=== PATIENT | female | born 1990 | race Asian ===

== ENCOUNTER 2019-04-03 07:36 | Emergency (ER) | payer OTHER | END 2019-04-03 11:45 | disposition home or self-care (01) | LOC: JER 07:36 ==

== ENCOUNTER 2019-06-08 00:47 | Emergency (ER) | payer OTHER ==
[2019-06-08 01:00] VITALS: BP 113/73; PULSE 63; TEMP 97.6; BMI 24.3
--- NOTE | 2019-06-08 01:35 | PDOC ---
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 Patient stuck w/ 22g butterfly needle in L 3rd finger post blood draw of patient. Ms. Orellana is well appearing w/ no complaints at this time. Patient not requesting any testing however needs medical evaluation. Patient blood draw was from has no PMH. The patient denies chest pain, shortness of breath, headache and dizziness. Denies fever, chills, nausea, vomit, diarrhea and constipation. Denies dysuria, frequency, urgency and hematuria. Past History - Past Medical History Allergies/Adverse Reactions: Allergies Allergy/AdvReac Type Severity Reaction Status Date / Time No Known Allergies Allergy Verified 06/08/19 00:58 Home Medications: Ambulatory Orders NK [No Known Home Medication] 06/08/19 COPD: No Thyroid Disease: Yes (hypo) - Immunization History Immunization Up to Date: Yes - Suicide/Smoking/Psychosocial Hx Smoking History: Never smoked Have you smoked in the past 12 months: No Information on smoking cessation initiated: No Hx Alcohol Use: No Drug/Substance Use Hx: No Substance Use Type: None Review of Systems - Review of Systems Comments:: 06/08/19 01:31 GENERAL/CONSTITUTIONAL: No fever or chills. No weakness. HEAD, EYES, EARS, NOSE AND THROAT: No change in vision. No ear pain or discharge. No sore throat. CARDIOVASCULAR: No chest pain or shortness of breath RESPIRATORY: No cough, wheezing, or hemoptysis. GASTROINTESTINAL: No nausea, vomiting, diarrhea or constipation. GENITOURINARY: No dysuria, frequency, or change in urination. MUSCULOSKELETAL: No joint or muscle swelling or pain. No neck or back pain. SKIN: No rash NEUROLOGIC: No headache, vertigo, loss of consciousness, or change in strength/ sensation. ENDOCRINE: No increased thirst. No abnormal weight change HEMATOLOGIC/LYMPHATIC: No anemia, easy bleeding, or history of blood clots. ALLERGIC/IMMUNOLOGIC: No hives or skin allergy. *Physical Exam - Vital Signs Last Vital Signs Temp Pulse Resp BP Pulse Ox 97.6 F 63 20 113/73 99 06/08/19 00:59 06/08/19 00:59 06/08/19 00:59 06/08/19 00:59 06/08/19 00:59 - Physical Exam Comments: 06/08/19 01:32 GENERAL: Awake, alert, and fully oriented, in no acute distress HEAD: No signs of trauma, normocephalic, atraumatic EYES: PERRLA, EOMI, sclera anicteric, conjunctiva clear ENT: Auricles normal inspection, hearing grossly normal, nares patent, oropharynx clear without exudates. Moist mucosa NECK: Normal ROM, supple, no lymphadenopathy, JVD, or masses LUNGS: No distress, speaks full sentences, clear to auscultation bilaterally HEART: Regular rate and rhythm, normal S1 and S2, no murmurs, rubs or gallops, peripheral pulses normal and equal bilaterally. ABDOMEN: Soft, nontender, normoactive bowel sounds. No guarding, no rebound. No masses EXTREMITIES: +Pinpoint kevon c/w needlestick to L 3rd finger. Otherwise Normal inspection, Normal range of motion, no edema. No clubbing or cyanosis. NEUROLOGICAL: Cranial nerves II through XII grossly intact. Normal speech, normal gait, no focal sensorimotor deficits SKIN: Warm, Dry, normal turgor, no rashes or lesions noted. Medical Decision Making - Medical Decision Making 06/08/19 01:33 Ms. Orellana is a 29 yo female w/ no significant pmh who presents for evaluation s/p needlestick. Patient well appearing w/ no complaints. Does not wish for testing at this time. Discharging. *DC/Admit/Observation/Transfer Diagnosis at time of Disposition: Needle stick injury - Discharge Dispostion Disposition: HOME - Referrals Referrals: Marino Knutson MD [Primary Care Provider] - - Patient Instructions Printed Discharge Instructions: How to Handle Body Fluid Exposure -- Healthcare Worker Additional Instructions: You were evaluated today in the ER for your injury. No concerning findings were found at this time and we believe you safe for discharge. You declined any testing. Please follow-up with primary care provider as needed for further evaluation. Return to ER if any fever, chills, pain, or any other concerning symptoms.
--- NOTE | 2019-06-08 01:38 | PDOC ---
Attending Attestation - Resident Resident Name: Nelson Willingham - ED Attending Attestation I have performed the following: I have examined & evaluated the patient, The case was reviewed & discussed with the resident, I agree w/resident's findings & plan - HPI HPI: 06/08/19 01:37 Pt comes with a hollow bore needlestick from a patient. 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 - Physicial Exam PE: 06/08/19 01:38 Agree with resident exam - Medical Decision Making 06/08/19 01:38 Home with employee health follow up.
== END 2019-06-08 01:40 | disposition home or self-care (01) ==
LOC: JER 00:47
DX: S60.453A Superficial foreign body of left middle finger, initial encounter (principal); W46.1XXA Contact with contaminated hypodermic needle, initial encounter; Y93.F9 Activity, other caregiving; Y92.239 Unspecified place in hospital as the place of occurrence of the external cause; Y99.0 Civilian activity done for income or pay
CPT/HCPCS: 99281-25

== ENCOUNTER 2019-06-08 07:30 | Emergency (ER) | payer OTHER ==
[2019-06-08 07:41] VITALS: BP 111/64; PULSE 69; TEMP 98.7; BMI 24.3
--- NOTE | 2019-06-08 08:26 | PDOC ---
Post Exposure HPI - General Chief Complaint: Blood/Body Fluid Exposure SJR Stated Complaint: NEEDLE STICK/EMPLOYEE Time Seen by Provider: 06/08/19 08:05 - History of Present Illness Initial Comments: 06/08/19 08:17 CHIEF COMPLAINT: body fluid exposure HISTORY OF PRESENT ILLNESS: 29 yo F with no PMH presents to [facility] for blood work after bodily fluid exposure via needlestick. Patient reports she was seen in the ED here last night and did not have blood drawn but management told her that she needed to get labs drawn per protocol. Denies any current symptoms. No recent travel or sick contacts. PAST MEDICAL HISTORY: Denies past medical history FAMILY HISTORY: Denies SOCIAL HISTORY: Denies tobacco, alcohol, illicit drug use. SURGICAL HISTORY: Denies ALLERGIES: No known drug allergies REVIEW OF SYSTEMS General/Constitutional: Denies fever or chills. Denies weakness, weight change. HEENT: Denies change in vision. Denies ear pain or discharge. Denies sore throat. Cardiovascular: Denies chest pain or shortness of breath. Respiratory: Denies cough, wheezing, or hemoptysis. Gastrointestinal: Denies nausea, vomiting, diarrhea or constipation. Denies rectal bleeding. Genitourinary: Denies dysuria, frequency, or change in urination. Musculoskeletal: Denies joint or muscle swelling or pain. Denies neck or back pain. Skin and breasts: Denies rash or easy bruising. Neurologic: Denies headache, vertigo, loss of consciousness, or loss of sensation. PHYSICAL EXAM General Appearance: Well-appearing, appropriately dressed. No apparent distress. HEENT: EOMI, PERRLA, normal ENT inspection, normal voice, TMs normal, pharynx normal. No conjunctival pallor. No photophobia, scleral icterus. Neck: Supple. Trachea midline. No tenderness, rigidity, carotid bruit, stridor , lymphadenopathy, or thyromegaly. Respiratory/Chest: Lungs CTAB. No shortness of breath, chest tenderness, respiratory distress, accessory muscle use. No crackles, rales, rhonchi, stridor , wheezing, dullness Cardiovascular: RRR. S1, S2. No JVD, murmur, bradycardia, tachycardia. Vascular Pulses: Dorsalis-Pedis (R): 2+, Dorsalis-Pedis (L): 2+ Gastrointestinal/Abdominal: Normal bowel sounds. Abdomen soft, non-distended. No tenderness or rebound tenderness. No organomegaly, pulsatile mass, guarding , hernia, hepatomegaly, splenomegaly. Lymphatic: No adenopathy, tenderness. Musculoskeletal/Extremities: Normal inspection. FROM of all extremities, normal capillary refill. Pelvis Stable. No CVA tenderness. No tenderness to extremities, pedal edema, swelling, erythema or deformity. Integumentary: Appropriate color, dry, warm. No cyanosis, erythema, jaundice or rash Neurologic: licensed veterinary technician II-XII intact. Fully oriented, alert. Appropriate mood/affect. Motor strength 5/5. No appreciable EOM palsy, facial droop or sensory deficit. Past History - Past Medical History Allergies/Adverse Reactions: Allergies Allergy/AdvReac Type Severity Reaction Status Date / Time No Known Allergies Allergy Verified 06/08/19 07:39 Home Medications: Ambulatory Orders NK [No Known Home Medication] 06/08/19 COPD: No Thyroid Disease: Yes (hypo) - Immunization History Immunization Up to Date: Yes - Suicide/Smoking/Psychosocial Hx Smoking History: Never smoked Have you smoked in the past 12 months: No Information on smoking cessation initiated: No Hx Alcohol Use: No Drug/Substance Use Hx: No Substance Use Type: None *Physical Exam - Vital Signs Last Vital Signs Temp Pulse Resp BP Pulse Ox 98.7 F 69 17 111/64 100 06/08/19 07:36 06/08/19 07:36 06/08/19 07:36 06/08/19 07:36 06/08/19 07:36 Medical Decision Making - Medical Decision Making 06/08/19 08:26 29 yo F with no PMH presents to [facility] for blood work after bodily fluid exposure via needlestick. -labs *DC/Admit/Observation/Transfer Diagnosis at time of Disposition: Needle stick injury, History of exposure to hazardous bodily fluids - Discharge Dispostion Disposition: HOME Condition at time of disposition: Stable Decision to Admit order: No - Referrals Referrals: Kelvin Knutson [Primary Care Provider] - - Patient Instructions Printed Discharge Instructions: How to Handle Body Fluid Exposure -- Healthcare Worker - Post Discharge Activity Forms/Work/School Notes: Back to Work
[2019-06-08 09:23] LABS: BASO % 0.8 % (0-2.0); EOS % 2.3 % (0-4.5); HEMOGLOBIN 11.5 GM/dL (10.7-15.3); LYMPH % 44.4 % (8-40); MCH 30.1 pg (25.7-33.7); MCHC 33.8 g/dl (32.0-36.0); MEAN CELL VOLUME 89.1 fl (80-96); NEUT % 48.5 % (42.8-82.8); PLATELET COUNT 289 K/MM3 (134-434); RBC 3.82 M/mm3 (3.60-5.2); RDW 13.1 % (11.6-15.6)
[2019-06-08 09:45] LABS: BILIRUBIN,TOTAL 0.2 mg/dL (0.2-1); BLOOD UREA NITROGEN 10.2 mg/dL (7-18); CALCIUM 8.7 mg/dL (8.5-10.1); CREATININE 0.6 mg/dL (0.55-1.3); POTASSIUM 3.7 mmol/L (3.5-5.1); TOT PROT 7.6 g/dl (6.4-8.2)
[2019-06-08 10:05] LABS: PHOSPHOROUS 4.1 mg/dL (2.5-4.9); URIC ACID 2.7 mg/dL (2.6-7.2)
== END 2019-06-08 08:34 | disposition home or self-care (01) ==
LOC: JER 07:30 → JERFT 07:30
DX: Z13.88 Encounter for screening for disorder due to exposure to contaminants (principal); S60.453D Superficial foreign body of left middle finger, subsequent encounter; W46.1XXD Contact with contaminated hypodermic needle, subsequent encounter
CPT/HCPCS: 36415; 80053; 82465; 82977; 83615; 84100; 84478; 84550; 85025; 86317; 86704; 86706; 86803; 87340; 87389; 99282-25

== ENCOUNTER 2019-09-14 23:26 | Emergency (ER) | payer OTHER ==
[2019-09-14] MEDS ORDERED: diphenhydrAMINE HCL 25 MG CAPSULE (FP) PO ONE (23:49)
--- NOTE | 2019-09-14 23:51 | PDOC ---
History of Present Illness - General Stated Complaint: RASH Time Seen by Provider: 09/14/19 23:47 History Source: Patient Exam Limitations: No Limitations - History of Present Illness Is this a multiple visit Asthma Patient?: No Timing/Duration: 1-3 hours Severity: mild Modifying Factors: improves with: other (Patient started a new moisturizer) Associated Symptoms: reports: denies symptoms Past History - Past Medical History Allergies/Adverse Reactions: Allergies Allergy/AdvReac Type Severity Reaction Status Date / Time No Known Allergies Allergy Verified 06/08/19 07:39 Home Medications: Ambulatory Orders NK [No Known Home Medication] 06/08/19 COPD: No Thyroid Disease: Yes (hypo) - Immunization History Immunization Up to Date: Yes - Psycho Social/Smoking Cessation Hx Smoking History: Never smoked Have you smoked in the past 12 months: No Hx Alcohol Use: No Drug/Substance Use Hx: No Substance Use Type: None
[2019-09-14] MEDS ORDERED: LORATADINE 10 MG TABLET ONE (23:56)
[2019-09-15] MEDS ORDERED: LORATADINE 10 MG TABLET PO ONE (00:03)
[2019-09-15 00:06] VITALS: BP 118/69; PULSE 72; TEMP 98; BMI 24.0
--- NOTE | 2019-09-15 02:29 | PDOC ---
Documentation entered by Cat Armstrong SCRIBE, acting as scribe for Gabriela Gutierrez MD. Gabriela Gutierrez MD: This documentation has been prepared by the shantelleeNathaniel Maria, SCRIBE, under my direction and personally reviewed by me in its entirety. I confirm that the documentation accurately reflects all work, treatment, procedures, and medical decision making performed by me. History of Present Illness - General Stated Complaint: RASH Time Seen by Provider: 09/14/19 23:47 History Source: Patient Exam Limitations: No Limitations - History of Present Illness Initial Comments: 09/14/19 23:59 Patient is a 29 year old female with no significant PMH who presents to the ED with a rash. Patient states she started using a new moisturizer and started noticing itching and a rash on her jawline. Denies any wheezing or shortness of breath. Past History - Past Medical History Allergies/Adverse Reactions: Allergies Allergy/AdvReac Type Severity Reaction Status Date / Time No Known Allergies Allergy Verified 06/08/19 07:39 Home Medications: Ambulatory Orders NK [No Known Home Medication] 06/08/19 COPD: No Thyroid Disease: Yes (hypo) - Immunization History Immunization Up to Date: Yes - Psycho Social/Smoking Cessation Hx Smoking History: Never smoked Have you smoked in the past 12 months: No Hx Alcohol Use: No Drug/Substance Use Hx: No Substance Use Type: None Review of Systems - Review of Systems Comments:: 09/14/19 23:59 CONSTITUTIONAL: Absent: fever, no chills, no fatigue EYES: Absent: visual changes ENT: Absent: ear pain, no sore throat CARDIOVASCULAR: Absent: chest pain, no palpitations RESPIRATORY: Absent: cough, no SOB GI: Absent: abdominal pain, no nausea, no vomiting, no constipation, no diarrhea GENITOURINARY: Absent: dysuria, no frequency, no hematuria MUSKULOSKELETAL: Absent: back pain, no arthralgia, no myalgia SKIN:+rash +itching NEURO: Absent: headache *Physical Exam - Physical Exam Comments: 09/15/19 00:00 GENERAL: Well-appearing, well-nourished. No apparent distress. HEENT: Normocephalic, atraumatic. PERRL, EOM intact. CARDIOVASCULAR: Normal S1, S2. Regular rate and rhythm. PULMONARY: Clear to auscultation bilaterally. No wheezing or stridor. ABDOMEN: Soft, non-distended, non-tender. EXTREMITIES: Normal ROM in all four extremities. No gross deformities. SKIN:+mild maculopapular rash on jawline Warm, dry. NEUROLOGICAL: No focal neurological deficits. Discharge - Discharge Information Problems reviewed: Yes Clinical Impression/Diagnosis: Contact dermatitis Qualifiers: Contact dermatitis type: irritant Contact dermatitis trigger: cosmetics Qualified Code(s): L24.3 - Irritant contact dermatitis due to cosmetics Condition: Stable Disposition: HOME - Follow up/Referral - Patient Discharge Instructions Patient Printed Discharge Instructions: DI for Contact Dermatitis Additional Instructions: please stop the new skin cream - Post Discharge Activity
== END 2019-09-15 00:08 | disposition home or self-care (01) ==
LOC: JER 23:26
DX: L24.3 Irritant contact dermatitis due to cosmetics (principal)
CPT/HCPCS: 99281-25

== ENCOUNTER 2023-09-01 17:49 | Emergency (ER) | payer OTHER ==
[2023-09-01 18:03] VITALS: BP 119/78; PULSE 91; RESP 18; TEMP 98.2; BMI 28.1
[2023-09-01 19:26] LABS: BASO % 0.6 % (0-2.0); EOS % 1.9 % (0-4.5); LYMPH % 16.5 % (8-40); MCH 28.4 pg (25.7-33.7); MCHC 33.4 g/dl (32.0-36.0); MEAN CELL VOLUME 85.1 fl (80-96); MEAN PLT VOLUME 7.4 fl (7.5-11.1); MONO % 6.2 % (3.8-10.2); NEUT % 74.8 % (42.8-82.8); PLATELET COUNT 404 10^3/uL (134-434); RBC 4.24 M/mm3 (3.60-5.2); RDW 13.7 % (11.6-15.6)
[2023-09-01 19:32] LABS: EPI CELLS 13 /uL (0-25.1); HYALINE CASTS 1 /uL (0-3.1); URINE APPEARANCE CLEAR; URINE BACTERIA 81 /uL (0-1359); URINE BILIRUBIN NEGATIVE (NEGATIVE); URINE COLOR YELLOW; URINE GLUCOSE (UA) NEGATIVE (NEGATIVE); URINE KETONE 1+ (NEGATIVE); URINE LEUK ESTERASE NEGATIVE (NEGATIVE); URINE NITRITE NEGATIVE (NEGATIVE); URINE PROTEIN NEGATIVE (NEGATIVE); URINE RBC 21 /uL (0-23.9); URINE UROBILINOGEN 0.2 mg/dL (0.2-1.0); URINE WBC 7 /uL (0-25.8)
[2023-09-01 19:37] LABS: HCG,QUALITATIVE URINE Positive
[2023-09-01 19:55] LABS: POTASSIUM 3.8 mmol/L (3.5-5.1)
[2023-09-01 19:59] LABS: ALBUMIN 3.5 g/dl (3.4-5.0); BLOOD UREA NITROGEN 8.9 mg/dL (7-18); CALCIUM 8.6 mg/dL (8.5-10.1)
[2023-09-01 20:02] LABS: CREATININE 0.5 mg/dL (0.55-1.3)
[2023-09-01 20:03] LABS: BILIRUBIN,TOTAL 0.2 mg/dL (0.2-1)
== END 2023-09-01 21:07 | disposition home or self-care (01) ==
LOC: JER 17:49
DX: O20.9 Hemorrhage in early pregnancy, unspecified (principal); Z3A.08 8 weeks gestation of pregnancy
CPT/HCPCS: 36415; 76817-TC; 80053; 81003; 84702; 84703; 85025; 87086; 99284-25